=== PATIENT | female | born 1980 | race Caucasian/White ===

== ENCOUNTER → 2017-02-10 | Outpatient (CLI) | payer BC ==
[~2017-02-10] MED LIST: PRENTAB26 PO
== END ==
LOC: C.PAPS 10:28
PROVIDERS: ATTEND Obstetrics & Gynecology
DX: Z01.419 Encounter for gynecological examination (general) (routine) without abnormal findings (principal)

== ENCOUNTER 2022-12-13 17:19 | Inpatient (IN) ==
--- NOTE | 2022-12-13 17:57 | History & Physical Report ---
Date of Service December 13, 2022 Assessment & Plan (1) Supervision of elderly multigravida: (2) resulting from in vitro fertilization, antepartum: (3) Gestational diabetes mellitus (GDM) affecting , antepartum: Plan no evidence of active labor. offered walking and recheck vs. go home and await closer ctx. fhts categ 1. History of Present Illness Chief Complaint: contractions Primary Care Provider: Miko Acosta MD 42yo at 39+wks ega presents to L&D with above cc. Patient with ctx about q11min. No rom, minimal bleeding but exam yesterday. +FM. PNC c/b 1. AMA 2. GDM diet controlled. 3. Rh neg 4. IVF PNL rh neg, ri, gbs neg OBH: x 1 GYNH: nl paps, no stds Allergies Allergy/AdvReac Type Severity Reaction Status Date / Time No Known Drug Allergies Allergy Verified 12/12/22 08:33 Home Medications Medication Instructions Recorded Confirmed Type prenat.vits,samira,[id number] 1 tab PO DAILY 05/12/22 12/12/22 History aspirin 81 mg tablet,delayed 81 mg PO DAILY 06/07/22 12/12/22 History release acetone (urine) test (Ketone Urine #50 ea 09/30/22 12/12/22 Rx Test strips) blood sugar diagnostic (OneTouch #150 ea 09/30/22 12/12/22 Rx Verio test strips) blood-glucose meter (OneTouch #1 ea 09/30/22 12/12/22 Rx Verio Reflect Meter) lancets 33 gauge (OneTouch Delica #150 ea 09/30/22 12/12/22 Rx Lancets) Patient History Medical History Encounter for Routine Gynecological Examination Encounter for screening for lipoid disorders Itching in the vaginal area Severe cervical dysplasia Varicella Surgical History H/O colposcopy with cervical biopsy History of loop electrical excision procedure (LEEP) S/P wisdom tooth extraction Family History (Updated 05/12/22 @ 14:37 by Smitha Saini) Father Diabetes Heart disease Brother Diabetes Social History (Updated 05/12/22 @ 14:40 by Smitha Saini) Smoking Status: Never smoker Hx Alcohol Use: Yes Hx Substance Use: No Beliefs That Will Affect Care: None marital status: Single marital status details: Cynthia VizcarraMom [phone] Current Living Situation: Family Current Living Situation Comment: lives with son current occupational status: employed current occupation: mental health counselor Other Information That Helps Us Care for You: No Feels Safe at Home: Yes Safety Concerns: Feels Safe At This Time Assistive Devices: None Review of Systems as per Subjective / HPI Physical Exam Constitutional: WD/WN, vitals as above Neurologic: grossly normal Psychiatric: A+Ox3, euthymic affect Genitourinary: Manual OB Exam: + cervical dilation 4 cm, + cervical effacement (75%) and + station -2 OB Exam Monitor Tracing: + external FHT monitor used, + external uterine monitor used (q10min), + category I and + normal FHT variability Results & Data Vital Signs (Past 12 Hours) Vital Signs Temp Pulse Resp BP 12/13/22 17:25 87 118/75 12/13/22 17:26 98.6 F 20 Coding Level of Care Code None Diagnoses Supervision of elderly multigravida O09.529 resulting from in vitro fertilization, antepartum O09.819 Gestational diabetes mellitus (GDM) affecting , antepartum O24.419
[2022-12-13] MEDS ORDERED: LIDOCAINE 1% LOCAL 20 ML VIAL INFIL PRN (19:54)
[2022-12-13] MEDS ORDERED: OXYTOCIN 30 UNITS/500 ML BAG IV PRN ×2 (19:54→19:56)
--- NOTE | 2022-12-13 20:02 | Labor Progress Brief Note ---
Date of Service December 13, 2022 Subjective pt now noting ctx q 5min Assessment & Plan (1) Gestational diabetes mellitus (GDM) affecting , antepartum: (2) resulting from in vitro fertilization, antepartum: (3) Need for rhogam due to Rh negative mother: (4) Supervision of elderly multigravida: (5) Active labor at term: Plan admit, iv, labs. desires epidural. plan arom after comfortable. fhts categ 1. check bsgs. Physical Exam Constitutional: WD/WN, vitals as above Respiratory: normal respiratory effort, lungs clear to auscultation Cardiovascular: Rate/Rhythm: regular rate and regular rhythm Gastrointestinal (Abdomen): soft gravid nt efw 7-8# Musculoskeletal: no edema nontender calves Neurologic: grossly normal Psychiatric: A+Ox3, euthymic affect Genitourinary: Manual OB Exam: + cervical dilation 6 cm, + cervical effacement 90% and + station -2 OB Exam Monitor Tracing: + external FHT monitor used, + external uterine monitor used (q5), + category I and + normal FHT variability Results & Data Vital Signs (Past 12 Hours) Vital Signs Temp Pulse Resp BP 12/13/22 19:00 98.1 F 18 12/13/22 19:00 60 134/82 12/13/22 17:25 87 118/75 12/13/22 17:26 98.6 F 20 Coding Level of Care Code None Diagnoses Gestational diabetes mellitus (GDM) affecting , antepartum O24.419 resulting from in vitro fertilization, antepartum O09.819 Need for rhogam due to Rh negative mother Z29.13 Supervision of elderly multigravida O09.529 Active labor at term
[2022-12-13] MEDS: LACTATED RINGER'S 1,000 ML IV PRN ×2 (20:12→21:13)
[2022-12-13 20:29] LABS: Hematocrit (blood only) 35.8 % (37.0-47.0); Hemoglobin 12.7 g/dl (12.0-16.0); Mean Corpuscular Hemoglobin 32.5 pg (25.0-34.0); Mean Corpuscular Hgb Conc 35.5 g/dL (32.0-36.0); Mean Corpuscular Volume 91.6 fL (80.0-100.0); Mean Platelet Volume 10.9 fL (9.4-12.4); Platelet Count 220 K/uL (130-400); RDW Coefficient of Variation 12.6 % (11.5-14.5); RDW Standard Deviation 42.1 fL (36.4-46.3); Red Blood Count 3.91 M/uL (4.20-5.40); White Blood Count 13.89 K/ul (4.8-10.8)
[2022-12-13] MEDS ORDERED: BUPIVACAINE 0.25% PF 30 ML VIAL ONE (20:39)
[2022-12-13] MEDS ORDERED: fentaNYL 2MCG/ML ROPIVACAINE 1.25MG/ML 100 ML BAG EPI ONE (20:39)
[2022-12-13] MEDS ORDERED: fentaNYL citrate PF 100 MCG/2 ML VIAL ONE (20:39)
[2022-12-13] MEDS ORDERED: ePHEDrine sulfate 50 MG/ML AMP ONE (20:39)
[2022-12-13] MEDS ORDERED: SODIUM CHLORIDE 0.9% PF INJ 10 ML VIAL ONE (20:39)
[2022-12-13] MEDS ORDERED: LIDOCAINE 2%/EPINEPHRINE 1:200,000 20 ML PF ONE (20:39)
[2022-12-13] MEDS ORDERED: NALOXONE HCL 1 MG in SODIUM CHLORIDE 0.9% 1000ML 1,000 ML IV PRN (20:45)
[2022-12-13] MEDS ORDERED: ePHEDrine sulfate 50 MG/ML AMP IV PRN (20:45)
[2022-12-13] MEDS ORDERED: fentaNYL 2MCG/ML ROPIVACAINE 1.25MG/ML 100 ML BAG EPI PRN (20:45)
[2022-12-13] MEDS ORDERED: diphenhydrAMINE 50 MG/ML VIAL IV PRN (20:45)
[2022-12-13] MEDS ORDERED: NALBUPHINE HCL INJ 10 MG/ML AMP IV PRN (20:45)
[2022-12-13] MEDS ORDERED: NALOXONE HCL 0.4 MG/1 ML VIAL/CARP IV PRN (20:45)
[2022-12-13] MEDS ORDERED: ONDANSETRON INJ 2 MG/ML 2 ML VIAL IV PRN (20:45)
--- NOTE | 2022-12-13 20:47 | Anesthesiology Consultation ---
Date of Service December 13, 2022 Assessment & Plan (1) Encounter for pre-operative examination: Chart Review Chart Review: Patient NOT seen in Pre Admission Testing and Acceptable Risk for Labor Epidural Consults Requested none History Height/Weight Height: 5 ft 4 in Weight: 78.018 kg Allergies Allergy/AdvReac Type Severity Reaction Status Date / Time No Known Drug Allergies Allergy none Verified 12/13/22 18:57 Medications Home Medications Medication Instructions Recorded Confirmed Last Taken prenat.vits,samira,fii-[id number]-[id number] 1 tab PO DAILY 05/12/22 12/13/22 Unknown aspirin 81 mg tablet,delayed 81 mg PO DAILY 06/07/22 12/13/22 Unknown release acetone (urine) test (Ketone Urine #50 ea 09/30/22 12/12/22 Unknown Test strips) blood sugar diagnostic (OneTouch #150 ea 09/30/22 12/12/22 Unknown Verio test strips) blood-glucose meter (OneTouch #1 ea 09/30/22 12/12/22 Unknown Verio Reflect Meter) lancets 33 gauge (OneTouch Delica #150 ea 09/30/22 12/12/22 Unknown Lancets) Active Medications Generic Name Dose Route Start Last Admin Trade Name Freq PRN Reason Stop Dose Admin Lactated Ringer's 1,000 mls @ 125 mls/hr 12/13/22 19:54 12/13/22 20:12 Lr IV 12/15/22 19:53 999 mls/hr .Q8H PRN Administration L&D Protocol Protocol Past Medical History Medical History Encounter for Routine Gynecological Examination Encounter for screening for lipoid disorders Itching in the vaginal area Severe cervical dysplasia Varicella Exercise / Class Metabolic Activity II 4-5 Yardwork/Stairs/Walk up hill Past Family History Family History Father Diabetes Heart disease Brother Diabetes Past Surgical History Surgical History H/O colposcopy with cervical biopsy History of loop electrical excision procedure (LEEP) S/P wisdom tooth extraction Past Anesthesia History No Hx of Anesthesia Complications and No Family Hx of Anesthesia Complications History of PONV No Hx of PONV and No Hx of Motion Sickness Social History Smoking Status: Never smoker Hx Alcohol Use: Yes Hx Substance Use: No substance use type: does not use Physical Exam Vital Signs Last Vital Signs Temp 36.7 C 12/13/22 19:00 Pulse 75 12/13/22 21:07 Resp 18 12/13/22 19:00 BP 132/80 12/13/22 20:47 Pulse Ox 99 12/13/22 21:07 Testing Laboratory Results 12/13/22 20:09 12/13/22 20:31 POC Glucose 85
[2022-12-13] MEDS ORDERED: CALCIUM CARBONATE 500 MG CHEWABLE TAB PO PRN (22:47)
--- NOTE | 2022-12-14 03:28 | Delivery Summary ---
Vaginal Delivery Summary Date of Service December 14, 2022 Vaginal Delivery Summary The patient dilated to complete and pushed to deliver a viable male Apgars 8 and 9 via over intact perineum. Mouth and nose bulb suctioned at perineum. Shoulders and body delivered with ease. Infant was vigorous and crying at . Cord clamped at 30 seconds of life and infant to maternal abdomen where the cord was then doubly clamped and cut. True knot noted. Placenta delivered spontaneously and intact at the 20min , three- vessel cord. Hemostasis achieved with dilute pitocin and uterine massage and drainage of the bladder for approximately 150 cc under sterile conditions. Cervix and sulci intact. EBL 500 cc. Mother and baby stable in recovery. [facility] Vaginal Delivery Charge Delivery Type Details:
[2022-12-14] MEDS ORDERED: BENZOCAINE 20% AER SPR 82.5 GM CAN EXT PRN (03:35)
[2022-12-14] MEDS ORDERED: OXYTOCIN 20 UNITS in LACTATED RINGER'S 1,000 ML IV SCH (03:35)
[2022-12-14] MEDS ORDERED: IBUPROFEN 600 MG TAB PO PRN (03:35)
[2022-12-14] MEDS ORDERED: ACETAMINOPHEN 325 MG TAB PO PRN (03:35)
[2022-12-14] MEDS ORDERED: OXYTOCIN 30 UNITS/500 ML BAG IV PRN (03:35)
[2022-12-14] MEDS ORDERED: miSOPROStoL 200 MCG TAB PR ONE (03:35)
[2022-12-14] MEDS ORDERED: DIPHTHERIA/TETANUS/PERTUSSIS 0.5mL SYR/VIAL (Age 7+yrs) IM ONE (03:35)
[2022-12-14] MEDS ORDERED: HYDROCORTISONE ACETATE 25 MG SUPP PR PRN (03:35)
[2022-12-14] MEDS ORDERED: oxyCODONE/ACETAMINOPHEN 5mg/325mg TAB PO PRN (03:35)
--- NOTE | 2022-12-14 03:59 | Anesthesia Procedure Note ---
Date of Service December 14, 2022 Anesthesia Post Epidural Note Vital Signs Vital Signs: Temp Pulse Resp BP Pulse Ox 36.9 C 109 H 20 119/72 98 12/14/22 00:50 12/14/22 03:56 12/14/22 02:30 12/14/22 03:56 12/14/22 03:25 Pain Intensity Abdomen: Pain Intensity: 3 Notes Mental Status: alert / awake / arousable and participated in evaluation Patient Amnestic to Procedure: No Nausea / Vomiting: adequately controlled Pain: adequately controlled Airway Patency, RR, SpO2: stable & adequate BP & HR: stable & adequate Hydration State: stable & adequate Neuraxial Anesthesia: was administered and sensory block is resolving Anesthetic Complications: no major complications apparent and Pt Satisfied with anesthetic care Epidural: Removed without complications and With tip intact
[2022-12-14] MEDS: PRENATAL VITAMIN 1 TAB PO SCH (09:11)
[2022-12-14] MEDS: DOCUSATE SODIUM 100 MG CAP PO SCH ×2 (09:11→21:11)
[2022-12-14] MEDS ORDERED: Nursing to Pharmacy Communication SCH (12:15)
--- NOTE | 2022-12-15 05:41 | Obstetrical Progress Note ---
Date of Service <Kiana Harvey - Last Filed: 12/15/22 06:42> December 15, 2022 Assessment & Plan <Kiana Harvey DO - Last Filed: 12/15/22 06:42> (1) Status post vaginal delivery: continue OOB, ambulation, diet as tolerated 6 week f/u <Hector Conner MD, FACOG - Last Filed: 12/15/22 07:09> (1) Status post vaginal delivery: Subjective <Kiana Harvey - Last Filed: 12/15/22 06:42> Pati is a 42 y/o female who is now PPD # 1 following vaginal delivery at 39 5/7 weeks. Reports feeling well overall this morning. Mild abdominal cramping, pain well managed on analgesics. Voiding. Tolerating meals overnight and able to ambulate some.Some persistent lochia with some improvement this morning. Breast feeding. Review of Systems Denies fever, chills, sweats Denies shortness of breath, difficulty breathing, chest pain, palpitations, chest pressure. Denies breast pain. Denies dysuria. Denies headache or changes in vision. Physical Exam <Kiana Harvey - Last Filed: 12/15/22 06:42> General: Alert, oriented. No acute distress. Cardiac: Regular rate and rhythm, no murmurs/rubs/gallops. Respiratory: Clear to auscultation bilaterally a/p, no wheezes/rales/rhonchi. No increased work of breathing. Symmetrical chest rise. No respiratory distress. Abdomen: Soft, nontender, nondistended. Uterus: Uterine fundus firm, palpable 2 cm below umbilicus. Lower Extremities: No deep calf pain. Results & Data <Kiana Harvey - Last Filed: 12/15/22 06:42> Vital Signs (Past 12 Hours) Vital Signs Temp Pulse Resp BP Pulse Ox O2 Del Method 12/15/22 00:40 36.6 C 66 18 102/61 Room Air 12/14/22 20:45 Room Air 12/14/22 20:45 36.7 C 80 18 130/75 97 Room Air <Hector Conner MD, FACOG - Last Filed: 12/15/22 07:09> Co-Signing Physician Notes Resident Physician Supervision Note: I was present with Dr. Harvey during the history and exam. I discussed the case with the resident and agree with the findings and plan as documented in the note. Any exceptions or clarifications are listed here: [None] Documented By: Hector Conner MD, FACOG Resident Activity Tracking <Kiana Harvey, DO - Last Filed: 12/15/22 06:42> Resident Involvement: Resident Care Provided Care Provided: OB Delivery (post )
[2022-12-15 07:55] LABS: Hematocrit (blood only) 24.3 % (37.0-47.0); Hemoglobin 8.3 g/dl (12.0-16.0)
[2022-12-15] MEDS: PRENATAL VITAMIN 1 TAB PO SCH (09:19)
[2022-12-15] MEDS: DOCUSATE SODIUM 100 MG CAP PO SCH (09:19)
[2022-12-16] MEDS ORDERED: bisacodyL 10 MG SUPP PR PRN
== END 2022-12-15 14:28 | disposition home or self-care (01) | DRG 807 ==
LOC: OPB 17:19 → 4S1 17:21 → 4E2 12-14 06:31